=== PATIENT | male | born 1940 | race Two or more races ===

== ENCOUNTER 2019-11-02 18:02 | Inpatient (IN) | payer MEDICARE, SELFPAY ==
[~2019-11-02] VITALS: Ht 162.6 cm; Wt 63.0 kg
[2019-11-02 18:05] VITALS: BP 94/54
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
--- NOTE | 2019-11-02 18:07 | NUR ---
Patient transferred to bed 11 via wheelchair by tech. RN evaluating patient at bedside.
[2019-11-02] MEDS ORDERED: NACL 0.9% 1,000 ML IV ONE (18:30)
[2019-11-02 18:44] LABS: BASOPHILS % (AUTO) 0.1 % (0.0-2.0); HEMATOCRIT 25.9 % (36-52); HEMOGLOBIN 8.3 g/dL (12.0-18.0); LYMPHOCYTES # (AUTO) 0.6 K/uL (2.0-11.5); LYMPHOCYTES % (AUTO) 3.2 % (20.5-51.1); MEAN CORPUSCULAR HEMOGLOBIN 29 pg (27-31); MEAN CORPUSCULAR HGB CONC 32 g/dL (33-37); MEAN CORPUSCULAR VOLUME 89.7 fL (80-94); MONOCYTES # (AUTO) 0.6 K/uL (0.8-1.0); MONOCYTES % (AUTO) 3.6 % (1.7-9.3); NEUTROPHILS # (AUTO) 16.7 K/uL (1.8-7.7); NEUTROPHILS % (AUTO) 93.1 % (42.2-75.2); PLATELET COUNT (AUTO) 420 K/uL (140-450); RED BLOOD CELL COUNT(AUTO) 2.89 MIL/uL (4.20-6.10)
--- NOTE | 2019-11-02 18:58 | NUR ---
Xray at bedside
[2019-11-02 19:02] LABS: APPEARANCE,URINE CLEAR (CLEAR); BILIRUBIN,URINE NEGATIVE (NEGATIVE); BLOOD, URINE NEGATIVE (NEGATIVE); COLOR,URINE YELLOW (YELLOW); LEUKOCYTE ESTERASE ,URINE NEGATIVE (NEGATIVE); NITRITE, URINE NEGATIVE (NEGATIVE); PH,URINE 5.5 (5.0-9.0); UGLUCOSE NEGATIVE (NEGATIVE)
[2019-11-02 19:12] LABS: ALBUMIN 2.2 g/dL (3.4-5.0); ANION GAP 10.8 (8-16); ASPARTATE AMINOTRANSFERASE 53 U/L (15-37); CARBON DIOXIDE 28.7 mmol/L (21-32); CHLORIDE 101 mmol/L (98-107); CREATININE 1.3 mg/dL (0.6-1.3); GLUCOSE 148 mg/dL (74-106); POTASSIUM 3.5 mmol/L (3.5-5.1); SODIUM SERUM 137 mmol/L (136-145); TOTAL BILIRUBIN 0.4 mg/dL (0.0-1.0); UREA NITROGEN, BLOOD 29 mg/dL (7-18)
--- NOTE | 2019-11-02 19:13 | NUR ---
RECIEVED REPORT FROM TISH CLAROS FOR CONTINUITY OF CARE
--- NOTE | 2019-11-02 19:13 | NUR ---
REPORT GIVEN TO JERRY CLAROS / BRENDA CLAROS FOR CONTINUITY OF CARE
--- NOTE | 2019-11-02 19:19 | NUR ---
PT RESTING IN BED, APPEARS TO BE IN NO VISABLE DISTRESS. VSS.
[2019-11-02 19:33] LABS: CREATINE KINASE MB 5.9 ng/mL (0-3.6)
--- NOTE | 2019-11-02 19:38 | NUR ---
SHAYLA BURT DISCONTINUED CT OF ABDOMEN AND PELVIS WITH CONTRAST AND WILL ORDER A CT OF HEAD WITHOUT CONTRAST.
--- NOTE | 2019-11-02 19:39 | NUR ---
PT IS BEING TRANSFERRED TO CT VIA [facility]
--- NOTE | 2019-11-02 19:45 | NUR ---
contacted lab for new orders for blood alcohol and urine drug screen
--- NOTE | 2019-11-02 19:50 | NUR ---
pt returned from ct via [facility]
[2019-11-02 20:09] LABS: BARBITURATE, URINE POSITIVE ng/ml (NEG <=200); BENZODIAZEPINE, URINE NEGATIVE ng/mL (NEG <=200); CANNABINOID, URINE NEGATIVE ng/mL (NEG <=50); COCAINE, URINE NEGATIVE ng/mL (NEG <=300); OPIATE, URINE NEGATIVE ng/mL (NEG <=2000); PHENCYCLIDINE SCREEN,URINE NEGATIVE ng/mL (NEG <=25)
[2019-11-02] MEDS ORDERED: ceFAZolin 1,000 MG VIAL ONE (20:22)
--- NOTE | 2019-11-02 20:31 | NUR ---
CLARITA WOODSON (SON) PHONE # [phone] WIFES PHONE # [phone]
[2019-11-02] MEDS ORDERED: CARB1TER9 PO (20:52)
[2019-11-02] MEDS ORDERED: FURO-572 PO (20:52)
[2019-11-02] MEDS ORDERED: CEPH250C16 PO (20:52)
[2019-11-02] MEDS ORDERED: CARB1ODT4 PO (20:52)
[2019-11-02] MEDS ORDERED: LISI-420 PO (20:52)
[2019-11-02] MEDS ORDERED: GABA100C PO (20:52)
[2019-11-02] MEDS ORDERED: PRAM0.5T4 PO (20:52)
--- NOTE | 2019-11-02 21:07 | NUR ---
stratasorb 4x4 adhesive wound dressing applied to scaral wound and diapered pt. turned pt to right side.
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
--- NOTE | 2019-11-02 22:46 | NUR ---
received fax confirmation.
--- NOTE | 2019-11-02 23:00 | NUR ---
turned pt to left side.
--- NOTE | 2019-11-02 23:48 | NUR ---
PT IS RESTING IN BED WITH EYES CLOSED. RESP EVEN AND UNLABORED. VSS.
[2019-11-03] MEDS ORDERED: fentaNYL 0.05 MG/ML VIAL IVP ONE (01:00)
--- NOTE | 2019-11-03 01:00 | NUR ---
PT RESTING COMFORTABLY IN BED. EQUAL CHEST RISE AND FALL. VSS. BED LOW AND LOCKED. SIDE RAILS X2.
[2019-11-03 02:30] VITALS: BP 130/60
--- NOTE | 2019-11-03 02:30 | NUR ---
RECIEVED PT AAOX2- 3 ,FROM ER / GURNEY - TRANSFER TO BED MANUALLY NID - O2 SAT 1005 , IV SITE INTACT AND PATENT . W/ OPEN WOUND ON SACRUM , FEBRILE -ADM. ASSESSMENT - DONE . MRSA SENT TO LAB . POC DISCUSSED - FAIR UNDERSTANDING . PUT ON SAFETY MEASURES - FALL RISK . WILL CONT. TO MONITOR.
--- NOTE | 2019-11-03 02:35 | NUR ---
Patient will be admitted to [facility]. Admited to MS. Will go to room 124 A. Belongings list completed. Report to ROBERTA CLAROS.
--- NOTE | 2019-11-03 03:00 | NUR ---
0PAGE TAPER/FINISHER - FOR FURTHER ORDERS - WILL WAIT THE RESPONSE.
--- NOTE | 2019-11-03 03:30 | NUR ---
DR. SIMRAN NERI MADE T.O AND CARRIED OUT.
--- NOTE | 2019-11-03 04:10 | NUR ---
PUT ON CONDOM CATH - FOR URINE COLLECTION - FOR CULTURE.
[2019-11-03] MEDS ORDERED: DEXT 5% / NACL 0.45% 1,000 ML IV SCH (04:30)
[2019-11-03] MEDS ORDERED: AZITHROMYCIN 500 MG in DEXTROSE 5% 250 ML IV SCH (04:30)
[2019-11-03] MEDS ORDERED: AZITHROMYCIN 500 MG INJ VIAL IV ONE (04:46)
[2019-11-03] MEDS: ACETAMINOPHEN 325 MG TAB PO PRN (04:58)
[2019-11-03] MEDS ORDERED: MORPHINE SULFATE 2 MG/ML SYR IVP PRN (05:50)
[2019-11-03] MEDS ORDERED: ACETAMINOPHEN 325 MG TAB PO PRN (05:50)
[2019-11-03] MEDS ORDERED: ONDANSETRON 4 MG/2 ML VIAL IVP PRN (05:50)
[2019-11-03] MEDS ORDERED: DEXTROSE 50% 50 ML SYR IVP PRN (06:05)
[2019-11-03] MEDS ORDERED: INSULIN LISPRO SLIDING SCALE 100 UNITS/ML VIAL SUBQ PRN (06:05)
--- NOTE | 2019-11-03 06:45 | NUR ---
CONT. TSB C/O MANAGER PHARMACEUTICAL.
--- NOTE | 2019-11-03 06:50 | NUR ---
LATEST HGT 140
[2019-11-03] MEDS: BLOOD GLUCOSE MONITORING 1 DEV DEV FS SCH ×4 (07:17→21:00)
--- NOTE | 2019-11-03 07:25 | NUR ---
ENDORSED TO AM SHIFT - STILL FEBRILE - OS SAT WNL - BP WNL - POSITIVE U.O - ENDORSED TO ANNA THERE IS AND ORDER OF CHANGE OF IVF TO PNSS .
--- NOTE | 2019-11-03 07:26 | NUR ---
RECEIVED PT FROM TELEVISION DIRECTOR NURSE YO FOR CONTINUITY OF CARE. PT IN STABLE CONDITION. RESPIRATIONS EVEN AND UNLABORED, 02 2L VIA NC. SAFETY MEASURES IN PLACE. BED IN LOW POSITION. BED ALARM ON. CALL LIGHT AT BEDSIDE. WILL CONTINUE TO MONITOR.
[2019-11-03 08:00] VITALS: BP 111/56
--- NOTE | 2019-11-03 08:48 | NUR ---
PATIENT HAS BEEN SCREENED AND CATEGORIZED HIGH NUTRITION RISK. PATIENT WILL BE SEEN WITHIN 1-2 DAYS OF ADMISSION. 11/03/19-11/04/[address]
[2019-11-03] MEDS ORDERED: LEVODOPA PO SCH (09:00)
[2019-11-03] MEDS ORDERED: CARBIDOPA PO SCH (09:00)
[2019-11-03] MEDS: PRAMIPEXOLE 0.5 MG TAB PO SCH ×3 (09:41→17:39)
[2019-11-03] MEDS: GABAPENTIN 100 MG CAP PO SCH ×2 (09:42→21:47)
[2019-11-03] MEDS: LISINOPRIL 20 MG TAB PO SCH (09:43)
[2019-11-03] MEDS: CARBIDOPA/LEVODOPA 50/200 MG TABER PO SCH ×2 (09:43→21:48)
--- NOTE | 2019-11-03 09:43 | NUR ---
GAVE ORDERED DUE MEDICATIONS AT THIS TIME. PT TOLERATED WELL. BED IN LOW POSITION. BED ALARM ON. CALL LIGHT AT BEDSIDE. WILL CONTINUE TO MONITOR.
[2019-11-03] MEDS: NACL 0.9% 1,000 ML IV SCH ×3 (09:44→17:36)
[2019-11-03] MEDS: ENOXAPARIN 40 MG/0.4 ML SYR SUBQ SCH (09:53)
--- NOTE | 2019-11-03 10:33 | NUR ---
CHANGED AND CLEANED AFTER URINATION. PT TOLERATED WELL. BED IN LOW POSITION. CALL LIGHT AT BEDSIDE, BED ALARM ON. WILL CONTINUE TO MONITOR.
[2019-11-03] MEDS ORDERED: POTASSIUM CHLORIDE 10 MEQ TABER PO SCH (11:00)
--- NOTE | 2019-11-03 11:10 | NUR ---
11/03/19 RD INITIAL ASSESSMENT COMPLETED PLEASE REFER TO NUTRITION ASSESSMENT UNDER CARE ACTIVITY FOR ESTIMATED NUTRITIONAL NEEDS. 1. RECOMMEND MECHANICAL SOFT CCHO 60GM DIET TOLERATED 2. RECOMMEND GLUCERNA BID 3. RECOMMEND VITAMIN C, MULTIVITAMIN AND ZINC FOR WOUND HEALING 4. RD TO FOLLOW-UP 2-3 DAYS, HIGH RISK ANDREA MATHUR RD
[2019-11-03 12:00] VITALS: BP 114/64
--- NOTE | 2019-11-03 12:00 | NUR ---
SWABBED FOR COVID 19 PT TOLERATED WELL. SPECIMEN DELIVERED TO LAB
[2019-11-03] MEDS ORDERED: VANCOMYCIN PER PHARMACY MC PRN (12:35)
--- NOTE | 2019-11-03 12:46 | NUR ---
PEGGY ELDER DR., TRANSFER TO TELE MONITORING, EDIT 1,000ML NS 0.9% 600ML/HR TO NS 0.9% 60ML/HR.
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
--- NOTE | 2019-11-03 14:22 | NUR ---
PT WATCHING TV AT THIS TIME. PT IN STABLE CONDITION. BED IN LOW POSITION. CALL LIGHT AT BEDSIDE, BED ALARM ON. WILL CONTINUE TO MONITOR.
[2019-11-03] MEDS: PIPERACILLIN/TAZOBACTAM 3.375 GM in DEXTROSE 5% 50 ML IV SCH ×2 (14:39→21:46)
--- NOTE | 2019-11-03 15:14 | NUR ---
CHANGED AND CLEANED AFTER URINATION. WOUND DRESSING DRY AND INTACT. PT TOLERATED WELL. BED IN LOW POSITION. CALL LIGHT AT BEDSIDE, BED ALARM ON. WILL CONTINUE TO MONITOR.
[2019-11-03] MEDS: VANCOMYCIN 1,000 MG in DEXTROSE 5% 250 ML IV SCH (15:31)
[2019-11-03 16:00] VITALS: BP 122/57
--- NOTE | 2019-11-03 16:38 | NUR ---
ASSISTED WITH CHANGING AND CLEANING AFTER MODERATE VOMITING AND MODERATE BOWEL MOVEMENT. PT IN STABLE CONDITION. BED IN LOW POSITION. BED ALARM ON. CALL LIGHT AT BEDSIDE. WILL CONTINUE TO MONITOR. Addendum: 11/03/19 at 1654 by Precious Lobato RN WRONG PATIENT
--- NOTE | 2019-11-03 18:15 | NUR ---
PT SLEEPING AT THIS TIME. RESPIRATIONS EVEN AND UNLABORED. BED IN LOW POSITION. CALL LIGHT AT BEDSIDE, BED ALARM ON. WILL CONTINUE TO MONITOR.
[2019-11-03 20:00] VITALS: BP 153/71
--- NOTE | 2019-11-03 20:30 | NUR ---
RECEIVED ENDORSEMENT FROM NOC SHIFT RN. PATIENT IS IN BED RESTING. NO SOB. DENIES PAIN. CHINESE SPEAKING. ON NS AT 60CC/HR. INFUSING WELL. IV SITE TO RAC 20 G. INTACT. PATIENT IS R/O COVID 19. DROPLET/CONTACT PRECAUTION OBSERVED AT ALL TIMES. CALL LIGHT WITHIN REACH. WILL CONTINUE TO MONITOR.
--- NOTE | 2019-11-03 21:48 | NUR ---
DUE MEDS GIVEN ORDERED. TOLERATED WELL. NO SOB. KEPT CLEAN AND DRY. WILL CONTINUE TO MONITOR.
[2019-11-04] VITALS: BP 154/75
--- NOTE | 2019-11-04 00:12 | NUR ---
V/S TAKEN AND RECORDED. NOT IN ANY ACUTE DISTRESS. DENIES PAIN.
--- NOTE | 2019-11-04 02:00 | NUR ---
PATIENT IS SLEEPING. RESPIRATION EVEN AND UNLABORED. WILL CONTINUE TO MONITOR.
[2019-11-04 04:00] VITALS: BP 154/74
--- NOTE | 2019-11-04 04:30 | NUR ---
PATIENT IS ASLEEP. CHANGED DRESSING TO PATIENT'S BUTTOCKS WITH THE HELP OF THE STEWARD/STEWARDESS TOURIST CLASS. KEPT COMFORTABLE.
[2019-11-04] MEDS: PIPERACILLIN/TAZOBACTAM 3.375 GM in DEXTROSE 5% 50 ML IV SCH ×3 (05:15→20:47)
--- NOTE | 2019-11-04 07:30 | NUR ---
BLOOD SUGAR CHECKED 64. PATIENT IS AWAKE. NOT IN ANY ACUTE DISTRESS. ADMINISTERED D50% IVP ORDERED. TOLERATED WELL. ENDORSED TO AM SHIFT RN FOR CONTINUITY OF CARE.
[2019-11-04] MEDS: BLOOD GLUCOSE MONITORING 1 DEV DEV FS SCH ×4 (07:35→21:00)
--- NOTE | 2019-11-04 07:37 | NUR ---
RECEIVED PATIENT FROM INFORMATION COORDINATOR NURSE FOR CONTINUITY OF CARE. PATIENT IS CURRENTLY SLEEPING AT THIS TIME. RESPIRATIONS EVEN AND UNLABORED, ON 3L O2 VIA NC. VISIBLE CHEST RISE AND FALL NOTED. ON TELE MONITORING. ABDOMEN SOFT AND NONTENDER. SKIN WARM AND DRY. SACRAL WOUND WITH OPTIFOAM DRESSING IN PLACE. DRESSING INTACT AND NO DRAINAGE. IV IN THE R AC GAUGE 22 RUNNING D5NS AT 60 ML/HR. NO SIGNS OF INFILTRATION. IV FLUSHING WELL. PATIENT IS BEDBOUND. UPPER EXTREMITIES SHAKING FROM PARKINSON'S DISEASE. FALL AND DROPLET PRECAUTIONS IN PLACE. BED IN LOW POSITION. CALL LIGHT IS WITHIN REACH. WILL CONTINUE TO MONITOR.
[2019-11-04 07:42] LABS: BASOPHILS % (AUTO) 0.3 % (0.0-2.0); EOSINOPHILS # (AUTO) 0.1 K/uL (0-0.4); EOSINOPHILS % (AUTO) 0.4 % (0.0-4.0); HEMATOCRIT 25.7 % (36-52); HEMOGLOBIN 8.4 g/dL (12.0-18.0); LYMPHOCYTES # (AUTO) 0.7 K/uL (2.0-11.5); LYMPHOCYTES % (AUTO) 4.9 % (20.5-51.1); MEAN CORPUSCULAR HEMOGLOBIN 29 pg (27-31); MEAN CORPUSCULAR HGB CONC 33 g/dL (33-37); MEAN CORPUSCULAR VOLUME 89.6 fL (80-94); MONOCYTES # (AUTO) 0.6 K/uL (0.8-1.0); MONOCYTES % (AUTO) 4.8 % (1.7-9.3); NEUTROPHILS % (AUTO) 89.6 % (42.2-75.2); PLATELET COUNT (AUTO) 388 K/uL (140-450); RED BLOOD CELL COUNT(AUTO) 2.87 MIL/uL (4.20-6.10); RED CELL DISTRIBUTION WIDTH 14.7 % (11.6-13.7); WHITE BLOOD COUNT (AUTO) 13.4 K/uL (4.8-10.8)
[2019-11-04 07:49] LABS: ANION GAP 9.3 (8-16); ASPARTATE AMINOTRANSFERASE 55 U/L (15-37); CARBON DIOXIDE 28.7 mmol/L (21-32); CHLORIDE 104 mmol/L (98-107); CREATININE 0.9 mg/dL (0.6-1.3); GLUCOSE 94 mg/dL (74-106); SODIUM SERUM 138 mmol/L (136-145); TOTAL BILIRUBIN 0.5 mg/dL (0.0-1.0); UREA NITROGEN, BLOOD 19 mg/dL (7-18)
[2019-11-04 08:00] VITALS: BP 150/86
[2019-11-04] MEDS: ENOXAPARIN 40 MG/0.4 ML SYR SUBQ SCH (08:38)
--- NOTE | 2019-11-04 08:38 | NUR ---
GIVEN LOVENOX SUBQ IN THE ABDOMEN FOR DVT PROPHYLACTIC. PLATELET IS 388. PATIENT TOLERATED WELL. EXPLAINED MEDICATION. WILL CONTINUE TO MONITOR.
[2019-11-04] MEDS ORDERED: CRUSHER, PILL MC ONE (08:40)
[2019-11-04] MEDS: LISINOPRIL 20 MG TAB PO SCH (08:43)
[2019-11-04] MEDS: PRAMIPEXOLE 0.5 MG TAB PO SCH ×3 (08:43→16:11)
[2019-11-04] MEDS: CARBIDOPA/LEVODOPA 50/200 MG TABER PO SCH ×2 (08:43→20:49)
[2019-11-04] MEDS: GABAPENTIN 100 MG CAP PO SCH ×2 (08:43→20:48)
--- NOTE | 2019-11-04 08:53 | NUR ---
GIVEN MORNING MEDICATIONS PO. EXPLAINED MEDICATIONS. BLOOD SUGAR RECHECKED: 121. BED IN LOW POSITION. CALL LIGHT IS WITHIN REACH. WILL CONTINUE TO MONITOR.
--- NOTE | 2019-11-04 09:01 | NUR ---
TIN ROSENBAUM IS GIVING PATIENT SPONGE BATH.
--- NOTE | 2019-11-04 09:17 | NUR ---
PLACED PATIENT ON 4L O2 VIA NC BECAUSE O2SAT CONTINUES TO BE IN THE 85-85%. WILL MONITOR FOR IMPROVEMENT. Addendum: 11/04/19 at 1101 by Princess Shea Josue RN 82-85%
--- NOTE | 2019-11-04 09:27 | NUR ---
Sprigger Note: KATELYNN contacted patient's [facility] [phone] to complete assessment. KATELYNN left VM. KATELYNN will follow up. Addendum: 11/07/19 at 1434 by Mark Adhikari KATELYNN contacted patient's son Ulises Wallis Jr. [phone] and left VM. KATELYNN also called Glen Wallis [phone] and left VM. KATELYNN will continue to follow up.
--- NOTE | 2019-11-04 09:40 | NUR ---
WITH 4L O2 VIA NC, PATIENT IS SATTING AT 99%. WILL CONTINUE TO MONITOR.
[2019-11-04] MEDS: NACL 0.9% 1,000 ML IV SCH (10:16)
--- NOTE | 2019-11-04 11:05 | NUR ---
DR. HOBBS MADE ROUNDS.
--- NOTE | 2019-11-04 11:08 | NUR ---
PHYSICAL THERAPIST LB STATED PT EVALUATION WILL BE DONE TOMORROW. MOI LIMA IS AWARE. SHANTELLE, CHARGE NURSE, IS ALSO AWARE.
--- NOTE | 2019-11-04 11:23 | NUR ---
INFORMED DR. HOBBS THAT I INCREASED O2 FROM 3 TO 4L VIA NC. HE STATED "THAT'S FINE."
[2019-11-04 12:00] VITALS: BP 152/73
--- NOTE | 2019-11-04 12:05 | NUR ---
BLOOD SUGAR CHECK: 92. NO INSULIN COVERAGE. SIMRAN PRO VIA IVPB. EXPLAINED MEDICATION. WOUND CARE NURSE, EBNNETT, AT BEDSIDE. BED IN LOW POSITION. CALL LIGHT WITHIN REACH. WILL CONTINUE TO MONITOR. Addendum: 11/04/19 at 1408 by Princess Shea Josue RN BLOOD SUGAR 96
--- NOTE | 2019-11-04 12:10 | NUR ---
SWABBED NASOPHARYNGEAL FOR COVID-19 FOR SNF PLACEMENT PER MD ORDER. Addendum: 11/04/19 at 1223 by Princess Shea Josue RN SECOND SWAB. PER DR. HOBBS, SNF NEEDS TWO NEGATIVES FOR PLACEMENT.
--- NOTE | 2019-11-04 12:40 | NUR ---
WOUND CARE EVALUATION NOTE: REASON FOR EVALUATION: LOW JEFF SCALE AND SACRALCOCCYX INFECTED WOUND SKIN ASSESSMENT DONE WITH THIS 79 Y/O MALE PT ADMITTED TO [facility] WITH INITIAL DX FEVER AND WEAKNESS. PAST MEDICAL HX INCLUDES HTN, DM AND CVA. ALL ABOVE INFORMATION OBTAINED FROM ADMISSION H&P. PT IS AWAKE, SKIN IS WARM AND DRY, BLE NO HAIR GROWTH, RIGHT JORGE ANKLE EDEMA. DORSAL PEDAL PULSES PRESENT AND NORMAL. CAPILLARY REFILLED < 2 SEC. X 10 TOES. INCONTINENT OF BOWEL X1 DURING ASSESSMENT. PLAN OF CARE DISCUSSED WITH PRIMARY RN. INTEGUMENTARY: -INCONTINENT ASSOCIATE DERMATITIS (IAD) TO: B/L GROINS EXTENDED TO JORGE-RECTAL, SKIN REDNESS - SACROCOCCYX PRESSURE ULCER UN-STAGEABLE, 5X4CM, WOUND BED 100% DARK BROWN SLOUGH TISSUE, MOIST WITH FOUL ODOR, WOUND EDGE SEEPING OUT OF PURULENT DRAINAGE, JORGE-WOUND DENUDED SKIN -RIGHT CALF OPEN BLISTER, 5X3 CM SUPERFICIAL DEPTH, WOUND BED MOIST AND PINK, SKIN FLAP INTACT, JORGE-WOUND DRY AND CLEAN -LEFT HEEL PRESSURE ULCER STAGE 1, NON-BLANCHABLE REDNESS 2X2CM SKIN INTACT AND MUSHY. RECOMMENDATIONS: -SURGEON CONSULT FOR SACRALCOCCYX DEBRIDEMENT -APPLY HYDRAGUARD TO R/L GROINS EXTENDED TO JORGE-RECTAL BID AND PRN IF SOILING -CLEANSE RIGHT CALF OPEN WOUND WITH WOUND CLEANSING SOLUTION. PAT DRY APPLY VERSATEL DRESSING TODAY AND Q7 DAYS AND PRN IF SOILING PREVENTION -CLEANSE SACRALCOCCYX WITH WOUND CLEANSING SOLUTION AND APPLY THERAHONEY CALF COVER WITH ISLAND DRESSING QD AND PRN IF SOILING -APPLY FORM DRESSING TO SACROCOCCYX AND LEFT HEEL Q7 DAYS AND PRN IF SOILING PREVENTION -APPLY HEEL PROTECTORS TO BOTH HEELS AT ALL TIMES -OFFLOAD BILATERAL HEELS BY PLACING PILLOWS UNDER CALVES UNLESS OTHERWISE CONTRAINDICATED -PRESSURE REDISTRIBUTION SURFACE THERAPY -TURN AND REPOSITION Q2H, OFFLOAD SACRALCOCCYX BY TURNING RIGHT AND LEFT -CONTINUE TO FOLLOW RD RECOMMENDATIONS ALL ABOVE RECOMMENDATIONS DISCUSSED WITH PRIMARY RN. WILL FOLLOW UP PT Q7-10 DAYS. PLEASE CONTACT WOUND CARE NURSE FOR ANY QUESTION AND CHANGE OF WOUND CONDITION.
--- NOTE | 2019-11-04 12:50 | NUR ---
FINANCIAL COST ANALYST IS ASSISTING PATIENT TO EAT LUNCH. NO SIGNS OF DISTRESS NOTED. BED IN LOW POSITION. CALL LIGHT IS WITHIN REACH. WILL CONTINUE TO MONITOR.
[2019-11-04] MEDS: THERAHONEY GEL 42.5 GM TP SCH (13:52)
[2019-11-04] MEDS: HYDRAGUARD CREAM TP SCH (13:52)
--- NOTE | 2019-11-04 13:53 | NUR ---
GIVEN PRAMIPEXOLE PO. APPLIED HYDRAGUARD AND THERAHONEY GEL ON SACRAL WOUND. APPLIED VERSATEL IN THE RIGHT LOWER LEG FOR THE OPEN BLISTER.
--- NOTE | 2019-11-04 13:54 | NUR ---
NON-PITTING RIGHT LOWER LEG EDEMA NOTED.
[2019-11-04] MEDS: VANCOMYCIN 1,000 MG in DEXTROSE 5% 250 ML IV SCH (14:00)
--- NOTE | 2019-11-04 14:00 | NUR ---
GIVEN VANCO VIA IVPB. EXPLAINED MEDICATION. BED IN LOW POSITION. CALL LIGHT IS WITHIN REACH. WILL CONTINUE TO MONITOR.
[2019-11-04] MEDS ORDERED: HYDRAGUARD CREAM TP PRN (14:40)
[2019-11-04] MEDS ORDERED: THERAHONEY GEL 42.5 GM TP PRN (14:40)
--- NOTE | 2019-11-04 15:21 | NUR ---
PATIENT IS AWAKE, WATCHING TV. NO SIGNS OF DISTRESS NOTED. O2SAT 96% ON 3L O2 VIA NC. CHEST RISE AND FALL NOTED. BED IN LOW POSITION. CALL LIGHT IS WITHIN REACH. WILL CONTINUE TO MONITOR.
[2019-11-04 16:00] VITALS: BP 132/85
--- NOTE | 2019-11-04 16:12 | NUR ---
BLOOD SUGAR CHECK: 122. NO INSULIN COVERAGE NEEDED. GIVEN MIRAPEX PO. EXPLAINED MEDICATION. BED IN LOW POSITION. CALL LIGHT IS WITHIN REACH. WILL CONTINUE TO MONITOR.
--- NOTE | 2019-11-04 17:32 | NUR ---
PATIENT IS CURRENTLY SLEEPING COMFORTABLY AT THIS TIME. NO SIGNS OF DISTRESS NOTED. O2SAT 97% ON 4L O2 VIA NC. NO SIGNS OF SOB. BED IN LOW POSITION. CALL LIGHT IS WITHIN REACH. WILL CONTINUE TO MONITOR.
--- NOTE | 2019-11-04 18:02 | NUR ---
REPOSITIONED PATIENT. HAD BM AND VOIDED. CHANGED SACRAL WOUND DRESSING WITH 2 OPTIFOAM 4X4, APPLIED THERAHONEY GEL AND HYDRAGUARD TO GROIN AREA WELL. VERSATEL IN THE RIGHT LOWER LEG IS STILL INTACT, DID NOT CHANGE.
--- NOTE | 2019-11-04 18:13 | NUR ---
DIGITAL WATCH ASSEMBLER IS ASSISTING PATIENT FOR DINNER.
--- NOTE | 2019-11-04 19:21 | NUR ---
ENDORSED PATIENT TO THE INSERTER NURSE FOR CONTINUITY OF CARE. PATIENT IS IN STABLE CONDITION.
--- NOTE | 2019-11-04 19:22 | NUR ---
RECEIVED BEDSIDE SHIFT REPORT FROM DAYSHIFT NURSE FOR CONTINUITY OF CARE. PT AWAKE. ON 3L O2 VIA NC SPO2 AT 98%. TELE MONITOR ATTACHED, IV RUNNING, SAFETY MEASURES IN PLACE.
[2019-11-04 20:00] VITALS: BP 153/74
--- NOTE | 2019-11-04 20:47 | NUR ---
ADMINISTERED 2100 MEDICATIONS. PATIENT TOLERATED WELL. NO SIGNS OF DISTRESS NOTED.
--- NOTE | 2019-11-04 22:50 | NUR ---
ROUNDING PATIENT ASLEEP IN BED. REPLACED PULSE OX. PT REMOVED. ASSESSED SPO2 98%. NO SIGNS OF DISTRESS NOTED
[2019-11-05] VITALS: BP 154/74
--- NOTE | 2019-11-05 00:20 | NUR ---
OBTAINED PT VS. PT RESTING NO SIGNS OF DISTRESS NOTED. RESPIRATIONS EVEN AND UNLABORED. SAFETY MEASURES IN PLACE. CALL LIGHT WITHIN REACH
[2019-11-05] MEDS: HYDRAGUARD CREAM TP SCH ×2 (01:00→13:30)
--- NOTE | 2019-11-05 01:00 | NUR ---
COMPLETED WOUND ASSESSEMENT. CLEANSED SACRAL WOUND AND REPLACED DRESSAGE DUE TO BEING SOILED. PT TOLERATED WELL
[2019-11-05] MEDS: NACL 0.9% 1,000 ML IV SCH ×2 (02:56→19:36)
--- NOTE | 2019-11-05 03:30 | NUR ---
ROUNDING. PT RESTING IN BED. NO SIGNS OF DISTRESS NOTED. TELE MONITOR ATTACHED. CALL LIGHT WITHIN REACH
[2019-11-05 04:00] VITALS: BP 137/69
[2019-11-05] MEDS: PIPERACILLIN/TAZOBACTAM 3.375 GM in DEXTROSE 5% 50 ML IV SCH ×3 (05:52→20:52)
--- NOTE | 2019-11-05 05:52 | NUR ---
ADMINISTERED 0500 MEDS PER MD ORDER. PT TOLERATED WELL. OBTAINED BS NO COVERAGE REQUIRED
[2019-11-05] MEDS: BLOOD GLUCOSE MONITORING 1 DEV DEV FS SCH ×4 (05:53→21:23)
--- NOTE | 2019-11-05 07:10 | NUR ---
ENDORSED PATIENT TO DAYSHIFT NURSE FOR CONTINUITY OF CARE. NO SIGNS OF DISTRESS NOTED.
--- NOTE | 2019-11-05 07:11 | NUR ---
RECEIVED REPORT FROM BUS CLEANER NURSE. PT IS CURRENTLY SLEEPING IN BED WITH NO SIGNS OF DISTRESS NOTED. RESPIRATIONS ARE EVEN AND UNLABORED ON 4L NC. SKIN IS WARM DRY AND DRESSINGS ARE INTACT, WITH IV ASYMPTOMATIC, PATENT, AND INFUSING PER ORDER. SAFETY MEASURES IN PLACE, CALL LIGHT WITHIN REACH AND WILL CONTINUE TO MONITOR.
[2019-11-05 07:12] LABS: BASOPHILS % (AUTO) 0.3 % (0.0-2.0); EOSINOPHILS # (AUTO) 0.1 K/uL (0-0.4); EOSINOPHILS % (AUTO) 0.5 % (0.0-4.0); HEMATOCRIT 23.5 % (36-52); HEMOGLOBIN 7.8 g/dL (12.0-18.0); LYMPHOCYTES # (AUTO) 0.6 K/uL (2.0-11.5); LYMPHOCYTES % (AUTO) 4.2 % (20.5-51.1); MEAN CORPUSCULAR HEMOGLOBIN 30 pg (27-31); MEAN CORPUSCULAR HGB CONC 33 g/dL (33-37); MEAN CORPUSCULAR VOLUME 88.8 fL (80-94); MONOCYTES # (AUTO) 0.8 K/uL (0.8-1.0); MONOCYTES % (AUTO) 5.7 % (1.7-9.3); NEUTROPHILS # (AUTO) 12.4 K/uL (1.8-7.7); NEUTROPHILS % (AUTO) 89.3 % (42.2-75.2); PLATELET COUNT (AUTO) 377 K/uL (140-450); RED BLOOD CELL COUNT(AUTO) 2.65 MIL/uL (4.20-6.10); RED CELL DISTRIBUTION WIDTH 15.2 % (11.6-13.7); WHITE BLOOD COUNT (AUTO) 13.9 K/uL (4.8-10.8)
[2019-11-05 07:31] LABS: ALBUMIN 1.9 g/dL (3.4-5.0); ANION GAP 10.7 (8-16); ASPARTATE AMINOTRANSFERASE 6 U/L (15-37); CHLORIDE 103 mmol/L (98-107); CREATININE 0.9 mg/dL (0.6-1.3); GLUCOSE 111 mg/dL (74-106); POTASSIUM 3.7 mmol/L (3.5-5.1); SODIUM SERUM 137 mmol/L (136-145); TOTAL BILIRUBIN 0.4 mg/dL (0.0-1.0); UREA NITROGEN, BLOOD 15 mg/dL (7-18)
[2019-11-05 08:00] VITALS: BP 152/80
[2019-11-05] MEDS: LISINOPRIL 20 MG TAB PO SCH (08:57)
[2019-11-05] MEDS: PRAMIPEXOLE 0.5 MG TAB PO SCH ×3 (08:58→16:56)
[2019-11-05] MEDS: GABAPENTIN 100 MG CAP PO SCH ×2 (08:58→20:52)
--- NOTE | 2019-11-05 09:15 | NUR ---
ADMINISTERED MEDICATIONS ORDERED AND TOLERATED WELL. PT IS CURRENTLY ALERT AND AWAKE WITH NO SIGNS OF DISTRESS NOTED. BREAKFAST IS AT BEDSIDE AND BODY MECHANIC IS GOING TO ASSIST WITH FEEDING AT THIS TIME. SAFETY MEASURES IN PLACE, CALL LIGHT WITHIN REACH AND WILL CONTINUE TO MONITOR.
[2019-11-05] MEDS: ENOXAPARIN 40 MG/0.4 ML SYR SUBQ SCH (09:20)
[2019-11-05] MEDS: CARBIDOPA/LEVODOPA 50/200 MG TABER PO SCH ×2 (09:21→20:52)
--- NOTE | 2019-11-05 11:15 | NUR ---
PT FAMILY CALLED AND ASKED TO SPEAK WITH PT, HOWEVER PT IS CURRENTLY SLEEPING. FAMILY WAS NOTIFIED THAT PT WILL BE AWOKEN WHEN BLOOD GLUCOSE MONITORING IS COMPLETED. SAFETY MEASURES IN PLACE AND WILL CONTINUE TO MONITOR.
[2019-11-05 12:00] VITALS: BP 127/70
--- NOTE | 2019-11-05 12:30 | NUR ---
PT IS CURRENTLY AWAKE, ALERT, WITH NO SIGNS OF DISTRESS NOTED. PT SPOKE TO HIS USING ROOM PHONE. BLOOD GLUCOSE WAS 91 AND NO INSULIN COVERAGE WAS NEEDED. LUNCH IS AT BEDSIDE AND ASSISTANCE WAS GIVEN. MEDICATIONS ADMINISTERED PER ORDER AND WILL CONTINUE TO MONITOR.
[2019-11-05] MEDS: THERAHONEY GEL 42.5 GM TP SCH (13:30)
--- NOTE | 2019-11-05 13:30 | NUR ---
PT WAS FOUND WITHOUT NASAL CANNULA IN PLACE. REINFORCED THAT NASAL CANNULA NEEDS TO STAY ON AT ALL TIMES. PT ALSO FOUND FIDGETING WITH O2 PROBE. REINFORCEMENT O2 PROBE ON PT EARLOBE TO GET MORE ACCURATE O2 SATURATION READING.
[2019-11-05] MEDS: VANCOMYCIN 750 MG in DEXTROSE 5% 250 ML IV SCH (15:21)
--- NOTE | 2019-11-05 15:50 | NUR ---
PHYSICAL SAW PT AND ST PT UP ON EDGE OF BED. PT NEEDED ASSISTANCE AND VERBALIZED THAT HE HAS NOT WALKED IN OVER TWO YEARS. PT HAD A SMALL BM AND DRESSING WAS CHANGED DUE TO BEING SOILED. SAFETY MEASURES IN PLACE AND WILL CONTINUE TO MONITOR.
[2019-11-05 16:00] VITALS: BP 122/71
[2019-11-05] MEDS: ACETAMINOPHEN 325 MG TAB PO PRN ×2 (16:56→22:59)
--- NOTE | 2019-11-05 17:04 | NUR ---
PT HAS A LOW GRADE FEVER OF 101.1. TYLENOL WAS GIVEN PO PER PARAMETER ORDERS. MEDICATIONS TOLERATED WELL. NO SIGNS OF DISTRESS NOTED. SAFETY MEASURES IN PLACE AND WILL CONTINUE TO MONITOR.
--- NOTE | 2019-11-05 18:13 | NUR ---
P.T. NOTES P.T. ALICE COMPLETED; NON AMBULATORY, O2 SAT 4L=90-91%, RN IN ROOM; ENDORSED TO NURSING. Addendum: 11/05/19 at 1814 by Khalida Meyer PT Amended: Links added.
--- NOTE | 2019-11-05 18:15 | NUR ---
PT IS CURRENTLY LAYING IN BED. RECEIVING WEIGHER IS AT BEDSIDE HELPING PT EAT. PT WAS CHANGED AND TOLERATED WELL. TEMPERATURE IS NOW 100.3 AND TRENDING DOWN AFTER PRN TYLENOL. SAFETY MEASURES IN PLACE AND WILL CONTINUE TO MONITOR.
--- NOTE | 2019-11-05 18:54 | NUR ---
PT REMOVED NC AND OXIMETER PROBE. REAPPLIED NASAL CANNULA AND O2 PROBE. RECHECKED TEMPERATURE WHICH IS NOW AT 99.8. SAFETY MEASURES IN PLACE AND WILL CONTINUE TO MONITOR.
--- NOTE | 2019-11-05 19:11 | NUR ---
ENDORSED TO MERCHANDISING STOCK ASSOCIATE NURSE. PT IS CURRENTLY SLEEPING WITH DINNER AT BEDSIDE. PT IS IN STABLE CONDITION.
--- NOTE | 2019-11-05 19:12 | NUR ---
RECEIVED BEDSIDE SHIFT REPORT FROM AM NURSE FOR CONTINUITY OF CARE. PT RESTING WITH DINNER TRAY AT BEDSIDE. NO SIGNS OF DISTRESS NOTED. ALL MONITORS ATTACHED. RESPIRATIONS EVEN AND UNLABORED ON 4LO2. WITH O2 SAT AT 100%
[2019-11-05 20:00] VITALS: BP 147/70
--- NOTE | 2019-11-05 20:52 | NUR ---
ADMINISTERED 2100 MEDICATIONS AND OBTAINED VITALS. PT APPEARED TO BE STABLE NO SIGNS OF DISTRESS NOTED. ALL MONITORS ATTACHED AND SAFETY MEASURES IN PLACE WILL CONTINUE TO MONITOR
--- NOTE | 2019-11-05 22:35 | NUR ---
ASKED BY FINANCIAL RECORDING CLERK TO REATACH TELE MONITOR LEADS WHICH CAME OFF. WHILE REAPPLYING LEADS PATIENT FELT WARM TO TOUCH. OBTAINED AXILLARY TEMPERATURE OF 101.00 TOO SOON TO ADMINISTER PRN TYLENOL FOR FEVER. APPLIED COOLING MEASURES OF ICE PACK UNTIL I CAN ADMINISTER MEDICATION. WILL CONTINUE TO MONITOR
--- NOTE | 2019-11-05 22:59 | NUR ---
ADMINISTERED PRN TYLENOL FOR AXILLARY TEMP OF 101.0 F. WILL REASSESS
[2019-11-06] VITALS: BP 113/58
--- NOTE | 2019-11-06 00:06 | NUR ---
REASSESSED PT FOR FEVER WHILE OBTAINING 0000 VITALS. PT TEMP DECREASED TO 99.8. WILL CONTINUE TO MONITOR.
[2019-11-06] MEDS: HYDRAGUARD CREAM TP SCH ×2 (01:00→13:23)
--- NOTE | 2019-11-06 01:30 | NUR ---
WOUND ASSESSMENT COMPLETE. SACRAL DRESSING SOILED. CLEANSED WOUND PER ORDER AND APPLIED NEW DRESSING. CALF BLISTER THE VERSATAL DRESSING CAME OFF AND WAS FOUND IN PATIENTS LINEN. CLEANSED SITE AND APPLIED NEW DRESSING. PATIENTS PERITONEAL AREA CLEANSED AND DERMABOND APPLIED. HEEL PROTECTORS APPLIED PER WOUND ORDER. WEDGE APPLIED FOR OFFLOADING. PATIENT REPOSITIONED TO RIGHT LATERAL POSITION. PATIENT TOLERATED WELL. NO SIGNS OF DISTRESS NOTED.
--- NOTE | 2019-11-06 01:44 | NUR ---
REASSESSED PT TEMPERATURE. CURRENTLY AT 99.2 AXILLARY. PT STATES HE FEELS OK. DENIES PAIN, SOB. WILL CONTINUE TO MONITOR
[2019-11-06] MEDS: VANCOMYCIN 750 MG in DEXTROSE 5% 250 ML IV SCH (03:56)
--- NOTE | 2019-11-06 03:56 | NUR ---
OBTAINED VS. REASSESSED PT TEMPERATURE 99.0 AXILLARY, ADMINISTERED VANCO. PT TOLERATED WELL NO SIGNS OF DISTRESS NOTED
[2019-11-06 04:00] VITALS: BP 110/60
[2019-11-06] MEDS: BLOOD GLUCOSE MONITORING 1 DEV DEV FS SCH ×4 (05:58→21:33)
[2019-11-06] MEDS: PIPERACILLIN/TAZOBACTAM 3.375 GM in DEXTROSE 5% 50 ML IV SCH ×3 (05:58→21:01)
--- NOTE | 2019-11-06 07:15 | NUR ---
endorsed pt to dayshift nurse at bedside for continuity of care. pt in stable condition. spo2 at 99%, all monitors attached
--- NOTE | 2019-11-06 07:16 | NUR ---
RECEIVED REPORT FROM HUMAN RESOURCES COMPLIANCE MANAGER NURSE ILSA FOR CONTINUITY OF CARE. PATIENT IN STABLE CONDITION. RESPIRATIONS EVEN AND UNLABORED, ROOM AIR. IV INTACT AND PATENT. SAFETY MEASURES IN PLACE. BED IN LOW POSITION. BED ALARM ON. CALL LIGHT AT BEDSIDE. WILL CONTINUE TO MONITOR.
[2019-11-06 07:44] LABS: BASOPHILS % (AUTO) 0.4 % (0.0-2.0); EOSINOPHILS # (AUTO) 0.1 K/uL (0-0.4); EOSINOPHILS % (AUTO) 0.8 % (0.0-4.0); HEMATOCRIT 21.1 % (36-52); HEMOGLOBIN 7.1 g/dL (12.0-18.0); LYMPHOCYTES # (AUTO) 0.5 K/uL (2.0-11.5); LYMPHOCYTES % (AUTO) 4.1 % (20.5-51.1); MEAN CORPUSCULAR HEMOGLOBIN 30 pg (27-31); MEAN CORPUSCULAR HGB CONC 33 g/dL (33-37); MEAN CORPUSCULAR VOLUME 88.7 fL (80-94); MONOCYTES # (AUTO) 0.7 K/uL (0.8-1.0); MONOCYTES % (AUTO) 5.4 % (1.7-9.3); NEUTROPHILS % (AUTO) 89.3 % (42.2-75.2); PLATELET COUNT (AUTO) 348 K/uL (140-450); RED BLOOD CELL COUNT(AUTO) 2.38 MIL/uL (4.20-6.10); RED CELL DISTRIBUTION WIDTH 15.1 % (11.6-13.7); WHITE BLOOD COUNT (AUTO) 13.4 K/uL (4.8-10.8)
[2019-11-06 07:53] LABS: ALBUMIN 1.8 g/dL (3.4-5.0); ASPARTATE AMINOTRANSFERASE 30 U/L (15-37); CARBON DIOXIDE 27.3 mmol/L (21-32); CHLORIDE 101 mmol/L (98-107); CREATININE 0.9 mg/dL (0.6-1.3); GLUCOSE 114 mg/dL (74-106); POTASSIUM 3.3 mmol/L (3.5-5.1); SODIUM SERUM 133 mmol/L (136-145); TOTAL BILIRUBIN 0.3 mg/dL (0.0-1.0); UREA NITROGEN, BLOOD 17 mg/dL (7-18)
[2019-11-06 08:00] VITALS: BP 140/76
--- NOTE | 2019-11-06 09:55 | NUR ---
GAVE ORDERED DUE MEDICATIONS AT THIS TIME. PT TOLERATED WELL. BED IN LOW POSITION. CALL LIGHT AT BEDSIDE. WILL CONTINUE TO MONITOR.
[2019-11-06] MEDS ORDERED: POTASSIUM CHLORIDE 10 MEQ TABER PO SCH (10:00)
[2019-11-06] MEDS: PRAMIPEXOLE 0.5 MG TAB PO SCH ×3 (10:00→17:56)
[2019-11-06] MEDS: GABAPENTIN 100 MG CAP PO SCH ×2 (10:01→21:01)
[2019-11-06] MEDS: LISINOPRIL 20 MG TAB PO SCH (10:01)
[2019-11-06] MEDS: CARBIDOPA/LEVODOPA 50/200 MG TABER PO SCH ×2 (10:03→21:01)
[2019-11-06] MEDS: ENOXAPARIN 40 MG/0.4 ML SYR SUBQ SCH (10:06)
--- NOTE | 2019-11-06 10:31 | NUR ---
(11/06/19) RD FOLLOW UP COMPLETED PLEASE REFER TO NUTRITION PROGRESS NOTE UNDER CARE ACTIVITY FOR ESTIMATED NUTRITION NEEDS. RD RECOMMENDATIONS: 1. CONTINUE MECHANICAL SOFT CCHO 60GM DIET TOLERATED. 2. CONTINUE GLUCERNA BID. THIS PROVIDES ADDITIONAL 440 KCAL AND 20 GM PROTEIN. 3. RECOMMEND VITAMIN C, MULTIVITAMIN AND ZINC FOR WOUND HEALING. 4. RD TO FOLLOW-UP 3-5 DAYS, MODERATE RISK. ANCELMO GALLOWAY MS, RDN
--- NOTE | 2019-11-06 11:10 | NUR ---
ASSISTED WITH CHANGING AND CLEANING PATIENT AT THIS TIME. PATIENT TOLERATED WELL. BED IN LOW POSITION. BED ALARM ON. CALL LIGHT AT BEDSIDE. WILL CONTINUE TO MONITOR.
[2019-11-06 12:00] VITALS: BP 126/64
[2019-11-06] MEDS: NACL 0.9% 1,000 ML IV SCH (12:16)
[2019-11-06] MEDS: THERAHONEY GEL 42.5 GM TP SCH (13:24)
--- NOTE | 2019-11-06 15:10 | NUR ---
PATIENT RESTING IN BED AT THIS TIME. BED IN LOW POSITION. CALL LIGHT AT BEDSIDE, BED ALARM ON. WILL CONTINUE TO MONITOR.
[2019-11-06 16:00] VITALS: BP 129/69
[2019-11-06] MEDS: ACETAMINOPHEN 325 MG TAB PO PRN (16:31)
--- NOTE | 2019-11-06 16:31 | NUR ---
GAVE PRN MEDICATION FOR FEVER 101.1 AT THIS TIME. PT IN STABLE CONDITION.
--- NOTE | 2019-11-06 17:30 | NUR ---
TEMP 99.8 AT THIS TIME. PT IN STABLE CONDITION.
--- NOTE | 2019-11-06 19:00 | NUR ---
RECEIVED BEDSIDE REPORT FROM DAY SHIFT NURSE. PATIENT IS AWAKE AND COOPERATIVE. RESPIRATION EVEN UNLABORED ON ROOM AIR. NO DISTRESS NOTED. SKIN IS WARM AND DRY. IV PATENT AND INTACT. PLAN OF CARE WAS DISCUSSED. ALL SAFETY MEASURES IN PLACE. BED IS AT LOW POSITION. CALL LIGHT WITHIN REACH. WILL CONTINUE TO MONITOR.
--- NOTE | 2019-11-06 19:20 | NUR ---
GAVE REPORT TO SOUND RANGING CREWMEMBER NURSE KISSBRIAN FOR CONTINUITY OF CARE. PT IN STABLE CONDITION.
[2019-11-06 20:00] VITALS: BP 148/80
--- NOTE | 2019-11-06 20:10 | NUR ---
INITIAL ASSESSMENT DONE. VITALS WERE TAKEN. PATIENT IS ON ROOM AIR. SATING 98%. PATIENT IN STABLE CONDITION. NO DISTRESS NOTED. WILL CONTINUE TO MONITOR.
--- NOTE | 2019-11-06 21:00 | NUR ---
ALL SCHEDULED MEDS WERE GIVEN PER ORDER. NO ASE NOTED. WILL CONTINUE TO MONITOR.
--- NOTE | 2019-11-06 22:30 | NUR ---
CHECKED PATIENT. PATIENT SLEEPING RESPIRATION EVEN UNLABORED ON ROOM AIR. NO DISTRESS NOTED. WILL CONTINUE TO MONITOR.
[2019-11-07] VITALS: BP 143/77
--- NOTE | 2019-11-07 00:03 | NUR ---
VITALS WERE TAKEN. PATIENT IN STABLE CONDITION. HEAR RATE 54. DENIES PAIN. NO DISTRESS NOTED. WILL CONTINUE TO MONITOR.
--- NOTE | 2019-11-07 01:00 | NUR ---
CHECKED PATIENT. PATIENT SLEEPING RESPIRATION EVEN UNLABORED ON ROOM AIR. NO DISTRESS NOTED. WILL CONTINUE TO MONITOR.
[2019-11-07] MEDS: HYDRAGUARD CREAM TP SCH ×2 (01:05→13:11)
[2019-11-07 04:00] VITALS: BP 146/80
--- NOTE | 2019-11-07 04:00 | NUR ---
VITALS WERE TAKEN. CHANGED PATIENT. PROVIDED WOUND CARE AND GOOD PERICARE. WILL CONTINUE TO MONITOR.
[2019-11-07] MEDS: NACL 0.9% 1,000 ML IV SCH ×2 (04:14→21:37)
[2019-11-07] MEDS: PIPERACILLIN/TAZOBACTAM 3.375 GM in DEXTROSE 5% 50 ML IV SCH ×3 (04:15→21:09)
[2019-11-07] MEDS: BLOOD GLUCOSE MONITORING 1 DEV DEV FS SCH ×4 (06:44→21:37)
--- NOTE | 2019-11-07 07:16 | NUR ---
ENDORSED PATIENT TO DAY SHIFT NURSE. PATIENT IN STABLE CONDITION.
[2019-11-07 07:19] LABS: BASOPHILS # (AUTO) 0.1 K/uL (0.00-0.22); BASOPHILS % (AUTO) 0.5 % (0.0-2.0); EOSINOPHILS # (AUTO) 0.2 K/uL (0-0.4); EOSINOPHILS % (AUTO) 1.9 % (0.0-4.0); LYMPHOCYTES # (AUTO) 0.8 K/uL (2.0-11.5); LYMPHOCYTES % (AUTO) 7.8 % (20.5-51.1); MEAN CORPUSCULAR HEMOGLOBIN 30 pg (27-31); MEAN CORPUSCULAR HGB CONC 34 g/dL (33-37); MEAN CORPUSCULAR VOLUME 88.6 fL (80-94); MONOCYTES # (AUTO) 0.7 K/uL (0.8-1.0); NEUTROPHILS # (AUTO) 8.1 K/uL (1.8-7.7); NEUTROPHILS % (AUTO) 82.8 % (42.2-75.2); PLATELET COUNT (AUTO) 420 K/uL (140-450); RED BLOOD CELL COUNT(AUTO) 2.71 MIL/uL (4.20-6.10); RED CELL DISTRIBUTION WIDTH 15.1 % (11.6-13.7); WHITE BLOOD COUNT (AUTO) 9.8 K/uL (4.8-10.8)
--- NOTE | 2019-11-07 07:59 | NUR ---
RECEIVED REPORT FROM ADVERTISING SALES MANAGER NURSE PATIENT LYING DOWN IN BED SLEEPING, AROUSABLE BY VOICE. NO DISTRESS NOTED. DENIES ANY PAIN. AAOX1, CALM, COOPERATIVE, SKIN COLOR APPROPRIATE TO ETHNICITY, WARM TO TOUCH. HAS SACRAL WOUND, AND RIGHT CALF OPEN BLISTER. DRESSING DRY AND INTACT. IV SITE INTACT, PATENT, AND INFUSING IVF PER MD ORDERS. RESPIRATIONS EVEN, UNLABORED, ON ROOM AIR. REVIEWED PLAN OF CARE WITH PATIENT. REINFORCEMENT NEEDED. SAFETY MEASURES IN PLACE, CALL LIGHT WITHIN REACH. WILL CONTINUE TO MONITOR.
[2019-11-07 08:00] VITALS: BP 160/82
[2019-11-07] MEDS: GABAPENTIN 100 MG CAP PO SCH ×2 (08:39→21:09)
[2019-11-07] MEDS: PRAMIPEXOLE 0.5 MG TAB PO SCH ×3 (08:40→17:34)
[2019-11-07] MEDS: CARBIDOPA/LEVODOPA 50/200 MG TABER PO SCH ×2 (08:40→21:09)
[2019-11-07] MEDS: ENOXAPARIN 40 MG/0.4 ML SYR SUBQ SCH (08:41)
[2019-11-07] MEDS: LISINOPRIL 20 MG TAB PO SCH (08:42)
[2019-11-07 08:57] LABS: ANION GAP 11.7 (8-16); ASPARTATE AMINOTRANSFERASE 26 U/L (15-37); CARBON DIOXIDE 26.1 mmol/L (21-32); CHLORIDE 102 mmol/L (98-107); CREATININE 0.8 mg/dL (0.6-1.3); POTASSIUM 3.8 mmol/L (3.5-5.1); SODIUM SERUM 136 mmol/L (136-145); TOTAL BILIRUBIN 0.3 mg/dL (0.0-1.0)
--- NOTE | 2019-11-07 09:13 | NUR ---
ASSISTED AIRCRAFT LOAD CONTROLLER IN CLEANING AND REPOSITIONING PATIENT. CHANGED WOUND CARE DRESSING ON SACRALCOCCYX PER MD ORDERS DUE TO SOILAGE. SCHEDULED MEDICATIONS DUE GIVEN. WILL CONTINUE TO MONITOR.
[2019-11-07 09:25] LABS: ALBUMIN 1.7 g/dL (3.4-5.0); UREA NITROGEN, BLOOD 13 mg/dL (7-18)
[2019-11-07 09:39] LABS: GLUCOSE 95 mg/dL (74-106)
[2019-11-07 12:00] VITALS: BP 141/80
[2019-11-07] MEDS: LORazepam 2 MG/ML VIAL IVP PRN (12:52)
--- NOTE | 2019-11-07 13:10 | NUR ---
ASSISTED ADAPTIVE PHYSICAL EDUCATION SPECIALIST IN CLEANING AND REPOSITIONING PATIENT. PATIENT TRIED TO GET OUT OF BED, CONFUSED. ATIVAN GIVEN AT THIS TIME TO HELP WITH ANXIETY. OTHER SCHEDULED MEDIATIONS DUE GIVEN. WILL CONTINUE TO MONITOR.
[2019-11-07] MEDS: THERAHONEY GEL 42.5 GM TP SCH (13:11)
[2019-11-07 16:00] VITALS: BP 150/80
--- NOTE | 2019-11-07 17:00 | NUR ---
ASSISTED CAR CARDER IN CLEANING AND REPOSITIONING PATIENT. SCHEDULED MEDICATIONS DUE GIVEN. WILL CONTINUE TO MONITOR.
--- NOTE | 2019-11-07 19:00 | NUR ---
RECEIVED BEDSIDE REPORT FROM DAY SHIFT NURSE. PATIENT IS AWAKE AND COOPERATIVE. RESPIRATION EVEN UNLABORED ON 2L NC O2. NO DISTRESS NOTED. SKIN IS WARM AND DRY. IV PATENT AND INTACT. PLAN OF CARE UP DATED. ALL SAFETY MEASURES IN PLACE. BED IS AT LOW POSITION. CALL LIGHT WITHIN REACH. WILL CONTINUE TO MONITOR.
--- NOTE | 2019-11-07 19:28 | NUR ---
GAVE REPORT FROM NIGHT NURSE FOR CONTINUITY OF CARE. PATIENT IN STABLE CONDITION.
[2019-11-07 20:00] VITALS: BP 129/99
--- NOTE | 2019-11-07 20:00 | NUR ---
INITIAL ASSESSMENT DONE. VITALS WERE TAKEN. PATIENT IS SATING 93-98% ROOM AIR WITH NO DISTRESS. WILL CONTINUE TO MONITOR.
--- NOTE | 2019-11-07 21:15 | NUR ---
ALL SCHEDULED MEDS WERE GIVEN PER ORDER. NO ASE NOTED. WILL CONTINUE TO MONITOR.
--- NOTE | 2019-11-07 23:28 | NUR ---
CHECKED PATIENT. PATIENT SLEEPING RESPIRATION EVEN UNLABORED ON ROOM AIR. NO DISTRESS NOTED. WILL CONTINUE TO MONITOR.
[2019-11-08] VITALS: BP 155/79
--- NOTE | 2019-11-08 | NUR ---
VITALS WERE TAKEN. PATIENT IN STABLE CONDITION. NO DISTRESS NOTED. WILL CONTINUE TO MONITOR.
--- NOTE | 2019-11-08 00:52 | NUR ---
ENDORSED PATIENT TO THI FOR CONTINUITY OF CARE. PATIENT IN STABLE CONDITION.
--- NOTE | 2019-11-08 00:53 | NUR ---
RECEIVED PATIENT IN STABLE CONDITION FROM HARLAN ABRAMS FOR CONTINUITY OF CARE. RESPIRATIONS EVEN,UNLABORED. SKIN WARM, DRY. IV SITE NOTED TO RIGHT FOREARM 22G PATENT/INTACT WITH FLUIDS INFUSING WELL. NO C/O PAIN. NO S/SX ACUTE DISTRESS. SAFETY PRECAUTIONS IN PLACE. CALL LIGHT WITHIN REACH. WILL CONTINUE TO MONITOR.
[2019-11-08] MEDS: LORazepam 2 MG/ML VIAL IVP PRN (01:02)
--- NOTE | 2019-11-08 01:02 | NUR ---
PATIENT AGITATED. MEDICATED ORDERED. SAFETY PRECAUTIONS IN PLACE. FREQUENT ROUNDS BY ALL STAFF. CALL LIGHT WITHIN REACH. WILL CONTINUE TO MONITOR.
[2019-11-08] MEDS: HYDRAGUARD CREAM TP SCH ×2 (01:05→12:37)
--- NOTE | 2019-11-08 01:30 | NUR ---
NO AGITATION NOTED. PATIENT ASLEEP. NO S/SX ACUTE DISTRESS. CALL LIGHT WITHIN REACH. WILL CONTINUE TO MONITOR.
[2019-11-08] MEDS: NACL 0.9% 1,000 ML IV SCH (02:47)
--- NOTE | 2019-11-08 03:02 | NUR ---
PATIENT CONTINUES IN STABLE CONDITION. ASLEEP. NO C/O PAIN. NO S/SX ACUTE DISTRESS. SAFETY PRECAUTIONS IN PLACE. CALL LIGHT WITHIN REACH. WILL CONTINUE TO MONITOR.
[2019-11-08 04:00] VITALS: BP 156/79
[2019-11-08] MEDS: PIPERACILLIN/TAZOBACTAM 3.375 GM in DEXTROSE 5% 50 ML IV SCH ×2 (04:40→12:36)
--- NOTE | 2019-11-08 05:00 | NUR ---
PATIENT IN STABLE CONDITION. NO C/O PAIN. NO S/SX ACUTE DISTRESS. CALL LIGHT WITHIN REACH. WILL CONTINUE TO MONITOR.
[2019-11-08] MEDS: BLOOD GLUCOSE MONITORING 1 DEV DEV FS SCH ×2 (07:30→11:24)
--- NOTE | 2019-11-08 07:30 | NUR ---
ENDORSED PATIENT IN STABLE CONDITION TO AM SHIFT NURSE.
[2019-11-08] MEDS ORDERED: SEVOFLURANE 250 ML BTL INH ONE (07:35)
[2019-11-08] MEDS ORDERED: fentaNYL 0.05 MG/ML VIAL ONE (07:35)
--- NOTE | 2019-11-08 07:35 | NUR ---
Patient taken in stable condition to OR for debridement.
[2019-11-08 07:43] LABS: BASOPHILS # (AUTO) 0.1 K/uL (0.00-0.22); EOSINOPHILS # (AUTO) 0.1 K/uL (0-0.4); EOSINOPHILS % (AUTO) 2.5 % (0.0-4.0); HEMATOCRIT 23.4 % (36-52); HEMOGLOBIN 7.9 g/dL (12.0-18.0); LYMPHOCYTES # (AUTO) 0.7 K/uL (2.0-11.5); LYMPHOCYTES % (AUTO) 13.1 % (20.5-51.1); MEAN CORPUSCULAR HEMOGLOBIN 30 pg (27-31); MEAN CORPUSCULAR HGB CONC 34 g/dL (33-37); MEAN CORPUSCULAR VOLUME 87.7 fL (80-94); MONOCYTES # (AUTO) 0.4 K/uL (0.8-1.0); MONOCYTES % (AUTO) 7.3 % (1.7-9.3); NEUTROPHILS # (AUTO) 4.2 K/uL (1.8-7.7); NEUTROPHILS % (AUTO) 76.1 % (42.2-75.2); PLATELET COUNT (AUTO) 445 K/uL (140-450); RED BLOOD CELL COUNT(AUTO) 2.67 MIL/uL (4.20-6.10); RED CELL DISTRIBUTION WIDTH 15.1 % (11.6-13.7); WHITE BLOOD COUNT (AUTO) 5.6 K/uL (4.8-10.8)
[2019-11-08 07:46] LABS: PROTHROMBIN TIME 10.5 secs (10.8-13.4)
[2019-11-08] MEDS ORDERED: HYDROGEN PEROXIDE 3% 240 ML BTL TP ONE (08:00)
[2019-11-08 08:01] LABS: ALBUMIN 1.6 g/dL (3.4-5.0); ANION GAP 9.6 (8-16); ASPARTATE AMINOTRANSFERASE 26 U/L (15-37); CARBON DIOXIDE 28.1 mmol/L (21-32); CHLORIDE 103 mmol/L (98-107); CREATININE 0.8 mg/dL (0.6-1.3); GLUCOSE 103 mg/dL (74-106); POTASSIUM 3.7 mmol/L (3.5-5.1); SODIUM SERUM 137 mmol/L (136-145); TOTAL BILIRUBIN 0.3 mg/dL (0.0-1.0); UREA NITROGEN, BLOOD 11 mg/dL (7-18)
[2019-11-08] MEDS ORDERED: BLOOD GLUCOSE MONITORING 1 DEV DEV FS SCH (08:20)
[2019-11-08] MEDS ORDERED: diphenhydrAMINE 50 MG/ML VIAL IVP PRN (08:20)
[2019-11-08] MEDS ORDERED: ONDANSETRON 4 MG/2 ML VIAL IVP PRN (08:20)
[2019-11-08] MEDS ORDERED: NACL 0.9% 1,000 ML IV SCH (08:20)
[2019-11-08] MEDS: PRAMIPEXOLE 0.5 MG TAB PO SCH ×2 (09:00→12:36)
[2019-11-08] MEDS: HYDROmorphone PFS 2 MG/ML SYR ONE ×2 (09:05→09:15)
--- NOTE | 2019-11-08 09:45 | NUR ---
Patient returned to unit in stable condition. Received report from Haily.
[2019-11-08 10:30] VITALS: BP 157/87
--- NOTE | 2019-11-08 10:50 | NUR ---
Technical Sourcing Recruiter Note: Basic Screen: Yes High Risk DC Screen Yes Name: GLEN GORDON Home Relationship: Pre-Admission Living Arrangements: Lives with Other Prior ADL Total/Dependent Current Home Health Name/Tel: N/A Current DME/02 Name/Tel: N/A Current Hospice Name/Tel: N/A Current Dialysis Name/Tel: N/A Healthcare Decision Maker: Next of Kin Advance Directive No Physician Orders for Life Sustaining Treatment Form No Discipline: Case Mgt/Social Svcs Tentative Discharge Plan/Destination: SNF/ECF Will require assistance post discharge: No Referred to Brake Operator Helper: No Tentative Discharge Plan Summary: Patient is a 79-year-old male admitted for fever, decubitis, and diabetes. Patient has PMHX of cerebrovascular accide, diabetes, and hypertension. Patient was admitted from home where he lives with , sons, and grandchildren. KATELYNN contacted Glen Gordon, patient's [phone]. Glen passed phone to Ulises Gordon Jr to complete assessment. Per Ulises, patient needs total assistance with ADLs and is not alert/oriented at baseline. Ulises reports no mental health history or substance abuse history. Ulises stated that whole family assists in caregiving for patient, but patient is bedbound and is often confused. KATELYNN informed patient of discharge plan for SNF placement for IV antibiotics and PT. Ulises stated that family was amenable to discharge plan. KATELYNN will follow up as needed. Signature: BELÉN Erazo Date: Nov 08, 2019 Time: 10:49 Addendum: 11/08/19 at 1057 by Mark Adhikari SS KATELYNN contacted [facility] Erick Lagunas [phone] regarding case # [id number]. KATELYNN spoke to Victoriano who stated that KATELYNN Staples was on patient's case [phone]. Victoriano stated for KATELYNN to inform Sarah of what SNF patient will be discharged to. Victoriano provided medical laboratory technologist number for Sarah Staples [phone] if Sarah was unavailable. KATELYNN will inform [facility] of discharge plan when information is available. Addendum: 11/08/19 at 1451 by Mark KEITH KATELYNN spoke to patient's daughter Connie Gordon [phone]. KATELYNN informed Connie that patient will be going to SNF for PT and IV ABX. Connie was agreeable to plan. Addendum: 11/08/19 at 1509 by Mark KEITH KATELYNN contacted [place] from [facility] and setup transportation from [facility] to [facility]. KATELYNN provided [place] auth# [id number]. Nurse was informed of pickup time. KATELYNN contacted [facility] [phone] to inform KATELYNN of placement. KATELYNN was given phone number to aRman at [facility] [phone]. KATELYNN left voicemail with Raman. KATELYNN will follow up with Raman to inform REJI that patient will be going to [facility].
[2019-11-08] MEDS: LISINOPRIL 20 MG TAB PO SCH (11:21)
[2019-11-08] MEDS: GABAPENTIN 100 MG CAP PO SCH (11:21)
--- NOTE | 2019-11-08 11:25 | NUR ---
Checked blood sugar: 92 mg/dl - no coverage required. Scheduled medications given as well. Patient stable at this time.
[2019-11-08] MEDS: ENOXAPARIN 40 MG/0.4 ML SYR SUBQ SCH (12:11)
[2019-11-08] MEDS: CARBIDOPA/LEVODOPA 50/200 MG TABER PO SCH (12:37)
[2019-11-08] MEDS: THERAHONEY GEL 42.5 GM TP SCH (12:39)
--- NOTE | 2019-11-08 12:40 | NUR ---
Scheduled IV abx and po medications given per order. Patient resting comfortably in bed with no distress noted.
[2019-11-08] MEDS ORDERED: CIPR500P4 PO (14:44)
[2019-11-08] MEDS ORDERED: METR250T2 PO (14:44)
--- NOTE | 2019-11-08 16:45 | NUR ---
Called report and discharged patient Called report to HARLAN Garcia at [facility] [phone]. Patient transferred in stable condition via ambulance. All belongings with patient.
== END 2019-11-08 16:45 | DRG 40 ==
LOC: MED 18:02 → UNDOADMIN 11-03 01:08 → MTU 11-03 01:08 → OBSVTOIN 11-03 15:05 → EEVIPCON 11-03 15:05 → MTU 11-03 16:58
PROVIDERS: ADMIT Internal Medicine Pulmonary Disease; ATTEND Internal Medicine Pulmonary Disease
PROC: 0KBN0ZZ Excision of Right Hip Muscle, Open Approach (ICD-10-PCS; 2019-11-08)
PROC: 0KBP0ZZ Excision of Left Hip Muscle, Open Approach (ICD-10-PCS; principal; 2019-11-08 07:30)
DX: G93.41 Metabolic encephalopathy (principal); L89.154 Pressure ulcer of sacral region, stage 4; N39.0 Urinary tract infection, site not specified; E44.0 Moderate protein-calorie malnutrition; R41.0 Disorientation, unspecified; I10 Essential (primary) hypertension; E11.9 Type 2 diabetes mellitus without complications; R62.7 Adult failure to thrive; R32 Unspecified urinary incontinence; R15.9 Full incontinence of feces; B96.5 Pseudomonas (aeruginosa) (mallei) (pseudomallei) as the cause of diseases classified elsewhere; Z20.828 Contact with and (suspected) exposure to other viral communicable diseases; Z86.73 Personal history of transient ischemic attack (TIA), and cerebral infarction without residual deficits; Z83.3 Family history of diabetes mellitus; Z82.49 Family history of ischemic heart disease and other diseases of the circulatory system; B34.9 Viral infection, unspecified; Z68.23 Body mass index [BMI] 23.0-23.9, adult; Z79.899 Other long term (current) drug therapy
CPT/HCPCS: 96361; 96365; 99285; G0378; 36415; 70450; 71045; 80053; 80202; 80305; 81003; 82550; 82553; 82948; 83605; 84484; 85025; 85610; 85730; 87040; 87070; 87075; 87081; 87086; 87186; 87205; 93005; G0482; J0456; J0690; J1170; J1650; J1815; J2060; J2270; J2543; J3010; J3370; J7030; J7060; Q0092